=== PATIENT | male | born 1955 | race Caucasian/White ===

== ENCOUNTER → 2020-06-05 17:27 | Outpatient (CLI) | payer MEDICAID, SELFPAY ==
[2020-06-05 18:35] LABS: Chloride 105 mmol/L (98-107)
[2020-06-05 18:36] LABS: Potassium 4.7 mmoL/L (3.5-5.1); Sodium 139 mmol/L (136-145)
[2020-06-05 18:38] LABS: Alanine Aminotransferase 15 U/L (12-78); Albumin Level 4.4 g/dl (3.5-5.0); Albumin/Globulin Ratio 1.5 (1.1-1.8); Alkaline Phosphatase 83 U/L (38-126); Anion Gap 17.7 mEq/L (5-15); Aspartate Amino Transferase 27 U/L (17-59); Bilirubin,Total 0.7 mg/dl (0.2-1.3); Blood Urea Nitrogen 19 mg/dl (9-20); Calcium 9.5 mg/dl (8.4-10.2); Carbon Dioxide 21 mmol/L (22.0-30.0); Estimated Glomerular Filt Rate 114 ml/min (>60); GFR (African American) 138 ML/MIN (>60); Glucose 91 mg/dl (74-100); Total Protein,Serum 7.4 g/dl (6.3-8.2)
== END ==
PROVIDERS: Visit Provider Family Medicine
DX: E87.6 Hypokalemia (principal)
CPT/HCPCS: 80053

== ENCOUNTER → 2021-08-20 12:43 | Outpatient (CLI) | payer MEDICAID, SELFPAY | PROVIDERS: Visit Provider Family Medicine | DX: Z20.822 Contact with and (suspected) exposure to COVID-19 (principal) | CPT/HCPCS: C9803; U0003; U0005 ==

== ENCOUNTER → 2021-11-18 14:54 | Outpatient (CLI) | payer MEDICAID, SELFPAY ==
[2021-11-18 17:08] LABS: Amphetamine/Metha Screen,Urine Negative ng/ml (<1000)
[2021-11-18 17:09] LABS: Barbiturates Screen,Urine Negative ng/ml (<200)
[2021-11-18 17:10] LABS: Benzodiazepines Screen,Urine Negative ng/ml (<200); Cannabinoid Screen,Urine Negative ng/ml (<50)
[2021-11-18 17:11] LABS: Cocaine Screen,Urine Negative ng/ml (<300)
[2021-11-18 17:12] LABS: Methadone Screen,Urine Negative ng/ml (<300); Opiate Screen,Urine Negative ng/ml (<300)
[2021-11-18 17:13] LABS: Phencyclidine Screen,Urine Negative ng/ml (<25)
== END ==
PROVIDERS: Visit Provider Family Medicine
DX: Z79.899 Other long term (current) drug therapy (principal)
CPT/HCPCS: 80305

== ENCOUNTER → 2021-11-30 10:06 | Outpatient (CLI) | payer MEDICARE, MEDICAID, SELFPAY | PROVIDERS: Visit Provider Surgery | DX: Z01.812 Encounter for preprocedural laboratory examination (principal); Z11.52 Encounter for screening for COVID-19; Z13.810 Encounter for screening for upper gastrointestinal disorder | CPT/HCPCS: C9803; U0003; U0005 ==

== ENCOUNTER 2021-12-03 10:55 | Day surgery (SDC) | payer MEDICARE, MEDICAID, SELFPAY ==
[2021-11-29 10:49] VITALS: BMI 28.3
[2021-12-03 11:11] VITALS: BP 137/87; PULSE 64; RESP 18; TEMP 36.5; O2SAT 98
[2021-12-03 11:27] VITALS: O2SAT 97
[2021-12-03 11:40] VITALS: BP 109/71; PULSE 66; RESP 18; TEMP 36.6; O2SAT 94
--- NOTE | 2021-12-03 11:44 | P.PCN_ITS ---
- Procedure: Date: 12/03/21 Patient Date of :: 1955 Procedure Performed:: Esophagogastroduodenoscopy with biopsy Indications:: Atypical chest pain Reflux Performing Provider:: Carlos Eduardo Mauricio MD Referring Provider:: . Sedation:: Monitored anesthesia care Procedure:: After informed consent was obtained the patient was taken to the endoscopy suite . Sedation ensued after the patient was transferred to the left lateral decubitus position. Pulse, blood pressure, and oxygen saturation were monitored throughout the procedure. The endoscope was advanced beyond the duodenal bulb. Retroflexion within the gastric lumen was accomplished. The gastroscope was carefully removed and the patient was transferred to recovery in stable condition. Please see findings and specimens below for detail. Findings:: Gastroesophageal junction at 41 cm Minuscule sliding hiatal hernia Patchy/streaking gastritis Specimens:: Antral biopsy Recommendations:: Follow-up pathology Evaluation with regard to atypical chest pain will be ongoing Barium swallow considered He may benefit from calcium channel blockade Complications:: No immediate Estimated blood obtained (mL): 1
[2021-12-03 11:50] VITALS: BP 110/70; PULSE 64; RESP 18; O2SAT 95
--- NOTE | 2021-12-03 11:52 | P.PN_ITS ---
[facility] Anesthesia Checklist - Patient Identification Patient Identification: Arm Band - Structural Data Admitted From: Home Planned Operative Procedure/s: egd Consent for Planned Operative Procedure(s) Verified: Yes Verified Documents: Surgical Consent, History and Physical - NPO Status Verified Time NPO: 00:00 - Additional verifications Anesthesia Reactions: No - Airway Assessment C-Spine Mobility Assessed: Yes (mp2) TMJ Mobility Assessed: Yes Dentition: Edentulous - Neurological Assessment Level of Consciousness: Awake, Alert - Anesthesia Plan Anesthesia Risk discussed: Yes Anesthesia Plan: Verified ASA Class: III Anesthesia Type: MAC [facility] History I have reviewed the patient's past medical history: Yes Medical History: Reports:: Cancer (left leg), Chronic Obstructive Pulmonary Disease (COPD), Hyperlipidemia, Hypertension, Migraine, Myocardial Infarction Denies:: Diabetes Mellitus Type 1, Diabetes Mellitus Type 2, Internal Pacemaker, MRSA, Seizures *Have you ever received a pneumonia vaccine?: No *Have you received a flu vaccine this season?: Yes Anesthesia experience/problems:: nac Laterality Cases: Left: Total Hip Replacement, Other Other Surgeries: Yes: Cardiac Catheterization, Cardiac Surgery, Coronary Stent, Open Heart Surgery. No: Pacemaker Amputation: Yes Fractures: No - *Social History Last grade of school completed: High school graduate Smoking Status: Current every day smoker Tobacco Type: cigarettes # Packs/Day (cigarettes): 1 Alcohol Intake: never Substance Use Type: denies use *Occupational Status:: disabled Housing: house Household Members: spouse *Travel in the last 8 weeks: None Family Hx:: Adopted
[2021-12-03 12:00] VITALS: BP 114/83; PULSE 62; RESP 18; O2SAT 96
[2021-12-03 12:10] VITALS: BP 132/76; PULSE 57; RESP 18; O2SAT 97
== END 2021-12-03 12:15 | disposition home or self-care (01) ==
LOC: OUTP 10:57
PROVIDERS: PCP Family Medicine; Visit Provider Surgery
PROC: 0DJ08ZZ Inspection of Upper Intestinal Tract, Via Natural or Artificial Opening Endoscopic (ICD-10-PCS; CPT 43235; principal; 2021-12-03 11:30)
DX: K44.9 Diaphragmatic hernia without obstruction or gangrene (principal); K29.60 Other gastritis without bleeding; J44.9 Chronic obstructive pulmonary disease, unspecified; E78.5 Hyperlipidemia, unspecified; I10 Essential (primary) hypertension; I25.2 Old myocardial infarction; G43.909 Migraine, unspecified, not intractable, without status migrainosus; Z85.9 Personal history of malignant neoplasm, unspecified; Z72.0 Tobacco use; Z88.0 Allergy status to penicillin; Z79.899 Other long term (current) drug therapy
CPT/HCPCS: 43239

== ENCOUNTER → 2021-12-06 16:40 | Outpatient (CLI) | payer MEDICARE, MEDICAID, SELFPAY ==
[2021-12-06 18:54] LABS: Amphetamine/Metha Screen,Urine Negative ng/ml (<1000)
[2021-12-06 18:55] LABS: Barbiturates Screen,Urine Negative ng/ml (<200)
[2021-12-06 18:56] LABS: Cannabinoid Screen,Urine Negative ng/ml (<50); Cocaine Screen,Urine Negative ng/ml (<300)
[2021-12-06 18:58] LABS: Opiate Screen,Urine Negative ng/ml (<300); Phencyclidine Screen,Urine Negative ng/ml (<25)
[2021-12-06 19:15] LABS: Methadone Screen,Urine Negative ng/ml (<300)
[2021-12-06 19:18] LABS: Benzodiazepines Screen,Urine Negative ng/ml (<200)
== END ==
PROVIDERS: Visit Provider Family Medicine
DX: Z79.899 Other long term (current) drug therapy (principal)
CPT/HCPCS: 80305

== ENCOUNTER → 2022-01-14 16:00 | Outpatient (CLI) | payer MEDICARE, MEDICAID, SELFPAY ==
[2022-01-14 20:13] LABS: Amphetamine/Metha Screen,Urine Negative ng/ml (<1000)
[2022-01-14 20:14] LABS: Barbiturates Screen,Urine Negative ng/ml (<200)
[2022-01-14 20:16] LABS: Benzodiazepines Screen,Urine Negative ng/ml (<200); Cannabinoid Screen,Urine Negative ng/ml (<50)
[2022-01-14 20:17] LABS: Cocaine Screen,Urine Negative ng/ml (<300); Methadone Screen,Urine Negative ng/ml (<300)
[2022-01-14 20:18] LABS: Opiate Screen,Urine Negative ng/ml (<300)
[2022-01-14 20:19] LABS: Phencyclidine Screen,Urine Negative ng/ml (<25)
== END ==
PROVIDERS: Visit Provider Family Medicine
DX: Z79.899 Other long term (current) drug therapy (principal)
CPT/HCPCS: 80305

== ENCOUNTER → 2022-01-25 12:06 | Outpatient (CLI) | payer MEDICARE, MEDICAID, SELFPAY ==
[2022-01-25 12:52] LABS: Basophils # 0.1 K/mm3 (0-0.2); Basophils % 0.8 % (0.1-2.0); Eosinophils # 0.2 K/mm3 (0.0-0.4); Eosinophils % 2.6 % (0.1-12.0); Hematocrit 45.2 % (42.0-52.0); Hemoglobin 15.1 g/dL (14.1-18.0); Lymphocytes # 2.2 K/mm3 (0.7-4.5); Lymphocytes % 27.4 % (10-50); Mean Corpuscular HGB Conc 33.5 g/dL (31.8-35.4); Mean Corpuscular Hemoglobin 30.9 pg (27.0-31.2); Mean Corpuscular Volume 92.2 fl (80-94); Mean Platelet Volume 6.8 fl (7.4-10.4); Monocytes # 0.6 K/mm3 (0.1-1.0); Monocytes % 7.1 % (1.7-9.3); Neutrophils % 62.1 % (37.0-80.0); Platelet Count 272 K/mm3 (142-424); Red Blood Count 4.91 M/mm3 (4.60-6.20); Red Cell Distribution Width 14.3 % (11.5-17.5); White Blood Count 8.1 K/mm3 (4.8-10.8)
[2022-01-25 13:26] LABS: Anion Gap 10.5 mEq/L (5-15); Blood Urea Nitrogen 22 mg/dl (9-20); Calcium 8.8 mg/dl (8.4-10.2); Carbon Dioxide 26 mmol/L (22.0-30.0); Chloride 105 mmol/L (98-107); Estimated Glomerular Filt Rate 97 ml/min (>60); GFR (African American) 117 ML/MIN (>60); Glucose 103 mg/dl (74-100); Potassium 3.5 mmoL/L (3.5-5.1); Sodium 138 mmol/L (136-145)
== END ==
PROVIDERS: PCP Family Medicine; Referring Provider Internal Medicine; Visit Provider Nurse Practitioner Family
DX: I10 Essential (primary) hypertension (principal); S78.112A Complete traumatic amputation at level between left hip and knee, initial encounter; Z85.830 Personal history of malignant neoplasm of bone; Z95.1 Presence of aortocoronary bypass graft; Z01.812 Encounter for preprocedural laboratory examination; Z11.52 Encounter for screening for COVID-19; I20.8 Other forms of angina pectoris
CPT/HCPCS: 36415; 80048; 85025; C9803; U0003; U0005

== ENCOUNTER 2022-01-27 09:06 | Day surgery (SDC) | payer MEDICARE, MEDICAID, SELFPAY ==
[2022-01-27] VITALS (13 sets, daily range): BP systolic 125–174; BP diastolic 77–104; PULSE 62–79; RESP 18–20; TEMP 36.9; O2SAT 92–97; BMI 27.3
--- NOTE | 2022-01-27 07:05 | IR_ITS ---
APPROVED REPORT Patient Location: Outpatient PROCEDURES Left heart catheterization Left ventriculogram Selective coronary angiogram Left internal mammary angiography Selective engagement of the saphenous vein graft to circumflex artery Bilateral selective renal angiography Drug-eluting stent deployment to a large second diagonal artery Drug-eluting stent deployment to the mid and distal LAD INDICATION Coronary artery disease, History of coronary bypass surgery, Accelerated angina pectoris, Malignant hypertension, Suspect renovascular hypertension with renal artery stenosis Informed consent was obtained prior to the procedure. COMPLICATIONS None Estimated Blood Loss: Less than 10 mls TECHNIQUE One percent lidocaine used to anesthetize the right groin. The right femoral artery was accessed via the Seldinger technique and a 5 Estonian sheath was placed in the right femoral artery. A JL 4, JR4 catheter were used to perform left heart catheterization, left ventriculogram selective coronary angiography as well as selective engagement of the 1 vein graft and the left internal mammary artery. The JR4 catheter was used to perform selective angiography of each renal artery. At the end the diagnostic angiogram therapeutic heparin was administered and the 5 Estonian sheath was exchanged for a 6 Estonian sheath. An EBU 3.75 guide catheter was placed in the left main artery followed by a Choice PT extra-support wire placed in the second large diagonal artery. A 2.5 x 12 mm resolute [place] stent was deployed in the LAD extending into the diagonal artery and deployed at 20 dinora. The wire was pulled back and placed down into the LAD where 2 mm x 12 mm noncompliant balloon was deployed at 20 dinora opening the struts into the LAD. 2.5 x 38 mm resolute [place] stent was then placed in the LAD proximal to the stented diagonal artery and distally into the LAD however the stent landed proximal to the small anastomosis of the left internal mammary artery the stent was deployed at 20 dinora reducing the stenosis. At the end the procedure excellent angiographic results were obtained. After achieving EDIN-3 flow before and after the procedure the apparatus was moved the groin is reprepped closure change sheath was removed and hemostasis was achieved and TR banding patient transferred the postop holding in stable condition ANGIOGRAPHIC RESULTS The left main artery Has an ostial 30% stenosis followed by proximal stent which extends into the proximal LAD. The stent is widely patent with minimal in-stent restenosis. The left anterior descending artery Has a stent originating off the left main artery which is widely patent in the proximal and mid segment. Just distal to the stent is a large second diagonal artery which has an ostial greater than 90% concentric in-stent restenotic lesion. Distal to the second diagonal artery there is a 90 followed by an additional 90% eccentric stenosis just proximal to the anastomosis of a small left internal mammary artery. There is some competitive flow from the LINDSEY graft. The circumflex artery Is a nondominant vessel and has proximal 30 to 40% stenosis. The terminal obtuse marginal artery has a proximal 90% stenosis in a small. There is some scant competitive flow from the vein graft The right coronary artery Is a large dominant vessel and has stents in the proximal mid and distal segment in a contiguous manner. There is diffuse 20 and 30% in-stent restenosis. A large posterior lateral branch is widely patent while a large posterior descending artery has a proximal 70% stenosis The CAMERON ventriculogram reveals Normal 65% The left ventricular end-diastolic pressure 10 mmHg Left internal mammary artery i
[2022-01-27 11:38] LABS: CATHL Activated Clotting Time > 400 SEC (74-125)
--- NOTE | 2022-01-27 12:19 | SUR.PHASEII ---
Notified Dr peña of patient chest pain after giving nitro spray and morphine, stated to give more nitro spray
--- NOTE | 2022-01-27 14:22 | HMH.PHACLD ---
Arash Montaño has received discharge medication counseling on the following medications: METOPROLOL ASPIRIN PLAVIX LIPITOR LISINOPRIL PATIENT IS ALREADY TAKING ALL NECESSARY MEDICATIONS WITH THE EXCEPTION OF ASPIRIN. PATIENT STATES HE HAS SOME AT HOME. PATIENT VERBALIZED UNDERSTANDING AND HAD NO QUESTIONS AT THIS TIME. -BAYRON REECE, PHARMD
== END 2022-01-27 15:24 | disposition home or self-care (01) ==
LOC: CATHLAB 09:08
PROVIDERS: PCP Family Medicine; Visit Provider Internal Medicine
DX: I10 Essential (primary) hypertension (principal); Z95.1 Presence of aortocoronary bypass graft; I25.110 Atherosclerotic heart disease of native coronary artery with unstable angina pectoris; I70.1 Atherosclerosis of renal artery; Z79.01 Long term (current) use of anticoagulants; Z79.899 Other long term (current) drug therapy; I15.0 Renovascular hypertension; I45.2 Bifascicular block; F17.210 Nicotine dependence, cigarettes, uncomplicated
CPT/HCPCS: 36252; 85347; 92928; 92929; 93459; 99152; 99153; C1725; C1760; C1769; C1876; C1894; C9600; C9601; J1644; Q9967

== ENCOUNTER 2022-02-03 09:17 | Day surgery (SDC) | payer MEDICARE, MEDICAID, SELFPAY ==
[2022-02-03] VITALS (20 sets, daily range): BP systolic 125–163; BP diastolic 76–113; PULSE 66–91; RESP 14–18; TEMP 36.4–36.7; O2SAT 92–99; BMI 26.7; BMI 27.3
--- NOTE | 2022-02-03 09:13 | IR_ITS ---
APPROVED REPORT Patient Location: Outpatient Food Service Manager: DULCE Amaro RT (R) PROCEDURES Left heart catheterization Left ventriculogram Selective coronary angiogram Selective engagement of the saphenous vein graft circumflex artery Drug-eluting stent deployment to the proximal mid and distal dominant right coronary artery's posterior descending artery INDICATION Recalcitrant angina pectoris, Coronary artery disease, History of coronary bypass surgery SCAI INDICATION Clinical history: 66-year-old gentleman with known ischemic heart disease who recently underwent stenting of the large diagonal artery and assiniboine and g[place] ventre tribes LAD to few weeks ago. Since his discharge home he has been in the emergency department no less than 3 times with recurrent recalcitrant angina pectoris. Patient is a long-term smoker and continues to excessively smoke. Patient had no disease in a posterior descending artery however we tried our best to treat this medically and we maximized antianginal medications. Despite all efforts patient continued to have recalcitrant angina pectoris. Because of this it was decided to revascularize the posterior descending artery which coincidentally did have EDIN II flow down the vessel. The plan was to bring patient into the Plant Maintenance Technician and stent the posterior descending artery. A radial cath was performed due to recent evaluation of the left internal mammary artery which did demonstrate patency with antegrade flow to the distal vessel. It was decided not to evaluate the LINDSEY graft today. Informed consent was obtained prior to the procedure. COMPLICATIONS NONE Estimated Blood Loss: LESS THAN 10 ML TECHNIQUE One percent lidocaine used to anesthetize the right groin. The right femoral artery was accessed via the Seldinger technique and a 5 Macedonian sheath was placed in the right femoral artery. A JL 4, JR4 catheter were used to perform left heart catheterization, left ventriculogram selective coronary angiography as well as selective engagement of the 2 vein grafts and the left internal mammary artery. At the end of the procedure the patient was transferred to the postop holding area in stable condition for sheath removal. ANGIOGRAPHIC RESULTS The left main artery Has an ostial 10 to 20% stenosis followed by a stent which extends throughout its entire course into the LAD. The stent is widely patent The left anterior descending artery Has a stent which originates off the left main artery and is contiguous throughout the proximal mid and distal segment. The stent is widely patent free of in-stent restenosis. Distal to the terminal aspect of the stent is competitive flow from the left internal mammary artery. A large stent placed in the terminal largest diagonal artery is widely patent and provides EDIN III inline flow to this diagonal artery The circumflex artery Is nondominant and provides flow to the first and second small obtuse marginal artery. The vessel has proximal 30% stenosis The right coronary artery Is a large dominant vessel and has calcification throughout the proximal mid segment accompanied by stents which are widely patent. Large posterior descending artery has proximal long 70% stenosis focal 80% stenosis followed by an additional focal 80% stenosis. A large posterior lateral branch is widely patent The CAMERON ventriculogram reveals Hyperdynamic at 75% The left ventricular end-diastolic pressure 20 mmHg Saphenous vein graft to the circumflex artery's terminal obtuse marginal artery is widely patent. The graft is large atheromatous and has sluggish flow into a small to moderate sized terminal obtuse marginal artery LINDSEY is known to be patent to the terminal LAD IMPRESS
[2022-02-03 09:24] LABS: Coronavirus 19, PCR Not Detected (NotDetected); Influenza A, PCR Not Detected (NotDetected); Influenza B, PCR Not Detected (NotDetected)
[2022-02-03 14:42] LABS: CATHL Activated Clotting Time > 400 SEC (74-125)
--- NOTE | 2022-02-03 17:40 | PC.NURSE ---
1735-Rt Radial Band removed at this time.
--- NOTE | 2022-02-03 18:38 | PC.NURSE ---
RT Radial Band removed at this time.
--- NOTE | 2022-02-03 18:46 | PC.NURSE ---
1445-3mls air removed from radial band 1505-3mls air removed from radial band 1520-2mls air removed from radial band 1538-4mls air removed from radial band 1550-2mls air removed from radial band 1625-2mls air removed from radial band
--- NOTE | 2022-02-03 18:53 | PC.NURSE ---
1657- 2mls air removed from rt radial band 1724-2mls air removed from rt radial band.
--- NOTE | 2022-02-03 19:36 | PC.NURSE ---
Report given to QI Santana.
[2022-02-04] VITALS: BP 153/92; PULSE 75; PULSE 92; RESP 18; TEMP 36.7; O2SAT 95
[2022-02-04 01:04] VITALS: RESP 18
[2022-02-04 04:00] VITALS: BP 154/86; PULSE 70; PULSE 81; RESP 20; TEMP 37.1; O2SAT 96; BMI 27.5
--- NOTE | 2022-02-04 04:22 | PC.NURSE ---
no acute changes from previous assessment, patient has rested on and off throughout shift, will continue to monitor
--- NOTE | 2022-02-04 04:43 | PC.NURSE ---
Addendum entered by Giselle Bolaños RN 02/04/22 04:45: SAHIL [employer] CLERK Original Note: ALL CHARTING AND CARE BY SAHIL RN, DONE UNDER MY DIRECT SUPERVISION.
[2022-02-04 05:38] VITALS: RESP 18
[2022-02-04 07:28] LABS: Basophils # 0.1 K/mm3 (0-0.2); Basophils % 0.9 % (0.1-2.0); Eosinophils # 0.2 K/mm3 (0.0-0.4); Eosinophils % 2.7 % (0.1-12.0); Hematocrit 40.2 % (42.0-52.0); Hemoglobin 12.7 g/dL (14.1-18.0); Lymphocytes # 1.4 K/mm3 (0.7-4.5); Mean Corpuscular HGB Conc 31.5 g/dL (31.8-35.4); Mean Corpuscular Volume 98.4 fl (80-94); Mean Platelet Volume 7.6 fl (7.4-10.4); Monocytes # 0.5 K/mm3 (0.1-1.0); Monocytes % 6.2 % (1.7-9.3); Neutrophils # 5.1 K/mm3 (1.8-7.8); Neutrophils % 71.1 % (37.0-80.0); Platelet Count 203 K/mm3 (142-424); Red Blood Count 4.09 M/mm3 (4.60-6.20); Red Cell Distribution Width 15.2 % (11.5-17.5); White Blood Count 7.2 K/mm3 (4.8-10.8)
[2022-02-04 07:43] LABS: Anion Gap 10.5 mEq/L (5-15); Blood Urea Nitrogen 9 mg/dl (9-20); Calcium 7.8 mg/dl (8.4-10.2); Carbon Dioxide 25 mmol/L (22.0-30.0); Chloride 103 mmol/L (98-107); Creatinine Clearance Estimated 98 mL/min (50-200); Estimated Glomerular Filt Rate 135 ml/min (>60); GFR (African American) 164 ML/MIN (>60); Glucose 149 mg/dl (74-100); Potassium 3.5 mmoL/L (3.5-5.1); Sodium 135 mmol/L (136-145)
[2022-02-04 08:00] VITALS: BP 161/65; PULSE 80; RESP 21; TEMP 36.7; O2SAT 96
--- NOTE | 2022-02-04 10:31 | PC.NURSE ---
verified with cathlab that patient could leave at 1230 24hours after anesthesia
--- NOTE | 2022-02-04 11:50 | HMH.PHACLD ---
Arash Montaño has received discharge medication counseling on the following medications: PATIENT IS CURRENTLY TAKING PLAVIX 75 MG DAILY, ATORVASTAIN 40 MG HS, LISINOPRIL 20 MG DAILY, AND METOPROLOL SUCCINATE 100 MG DAILY. MD STARTED ASPIRIN 81 MG DAILY AT LAST VISIT ON 01/27/22. PATIENT INDICATED HE HAS ALREADY BEEN TAKING THE ASPIRIN.
--- NOTE | 2022-02-04 12:39 | PC.NURSE ---
PT HAS BEEN RESTING IN BED T/O THE MORNING. HAS HAD NO C/O. D/C INSTRUCTIONS REVIEWED, PT VERBALIZED UNDERSTANDING. IV REMOVED. PT LEFT FLOOR IN WHEELCHAIR ACCOMPANIED BY STAFF AT 12:30.
== END 2022-02-04 12:30 | disposition home or self-care (01) ==
LOC: CATHLAB 09:21 → 2ND 14:03
PROVIDERS: Nurse Practitioner Family; PCP Family Medicine; Visit Provider Internal Medicine
DX: I10 Essential (primary) hypertension; I21.4 Non-ST elevation (NSTEMI) myocardial infarction; I45.2 Bifascicular block; R06.00 Dyspnea, unspecified; R94.31 Abnormal electrocardiogram [ECG] [EKG]; Z95.1 Presence of aortocoronary bypass graft; F17.210 Nicotine dependence, cigarettes, uncomplicated; I25.118 Atherosclerotic heart disease of native coronary artery with other forms of angina pectoris; Z20.822 Contact with and (suspected) exposure to COVID-19
CPT/HCPCS: 80048; 85025; 85347; 92928; 93459; 99152; 99153; C1725; C1760; C1769; C1876; C9600; C9803; J1644; Q9967; U0003; U0005

== ENCOUNTER → 2022-03-28 16:33 | Outpatient (CLI) | payer MEDICARE, MEDICAID, SELFPAY ==
[2022-03-28 17:17] LABS: Amphetamine/Metha Screen,Urine Negative ng/ml (<1000)
[2022-03-28 17:18] LABS: Barbiturates Screen,Urine Negative ng/ml (<200)
[2022-03-28 17:19] LABS: Benzodiazepines Screen,Urine Negative ng/ml (<200); Cannabinoid Screen,Urine Negative ng/ml (<50)
[2022-03-28 17:20] LABS: Cocaine Screen,Urine Negative ng/ml (<300)
[2022-03-28 17:21] LABS: Methadone Screen,Urine Negative ng/ml (<300); Opiate Screen,Urine Negative ng/ml (<300)
[2022-03-28 17:22] LABS: Phencyclidine Screen,Urine Negative ng/ml (<25)
== END ==
PROVIDERS: Visit Provider Family Medicine
DX: Z79.899 Other long term (current) drug therapy (principal)
CPT/HCPCS: 80305

== ENCOUNTER → 2023-07-30 23:43 | Outpatient (CLI) | payer MEDICARE, MEDICAID, SELFPAY ==
[2023-07-30 19:24] LABS: Alanine Aminotransferase 36 U/L (12-78); Albumin Level 4.4 g/dl (3.5-5.0); Albumin/Globulin Ratio 1.3 (1.1-1.8); Alkaline Phosphatase 67 U/L (38-126); Anion Gap 15.1 mEq/L (5-15); Aspartate Amino Transferase 51 U/L (17-59); Bilirubin,Total 0.9 mg/dl (0.2-1.3); Blood Urea Nitrogen 19 mg/dl (9-20); Calcium 9.3 mg/dl (8.4-10.2); Carbon Dioxide 22 mmol/L (22.0-30.0); Chloride 105 mmol/L (98-107); Chol/HDL Ratio 6.8 (1-3.5); Cholesterol 150 mg/dl (140-200); Estimated Glomerular Filt Rate 97 ml/min (>60); GFR (African American) 117 ML/MIN (>60); Globulin 3.4 g/dL (1.3-3.2); Glucose 97 mg/dl (74-100); HDL Cholesterol 22 mg/dl (40-60); Potassium 4.1 mmoL/L (3.5-5.1); Sodium 138 mmol/L (136-145); Total Protein,Serum 7.8 g/dl (6.3-8.2); Triglycerides 333 mg/dl (30-150); VLDL Cholesterol 67 mg/dL (0-40)
[2023-07-30 21:23] LABS: Direct LDL Cholesterol 67.42 mg/dL (100-129)
[2023-07-30 21:50] LABS: Prostate Specific Ag Screen 0.9 ng/ml (0.0-4.0)
== END ==
PROVIDERS: PCP Family Medicine; Visit Provider Family Medicine
DX: G43.909 Migraine, unspecified, not intractable, without status migrainosus (principal); I15.0 Renovascular hypertension; Z12.5 Encounter for screening for malignant neoplasm of prostate
CPT/HCPCS: 80053; 80061; G0103

== ENCOUNTER → 2023-08-21 14:11 | Outpatient (CLI) | payer MEDICARE, MEDICAID, SELFPAY ==
--- NOTE | 2023-08-21 14:11 | CT_ITS ---
FINAL REPORT CLINICAL HISTORY: lung cancer screening 2 ppd x 50 yrs FINDINGS: Axial images were obtained from the lung apex to the mid abdomen by computed tomography. Low-dose protocol was utilized. CTDl vol(mGy): 2.90 DLP (mGy-cm): 97.95 FINDINGS: There is streak artifact from multiple median sternotomy wires. There is no axillary adenopathy. There is no hilar or mediastinal adenopathy. The heart size is normal. There is dense coronary artery calcification. There is no pericardial or pleural effusion. Limited images of the upper abdomen are unremarkable. Lung window images demonstrate no suspicious infiltrate or nodule. There is mild chronic fibrosis bilaterally. A calcified granuloma seen in the left lung base. IMPRESSION: No suspicious pulmonary abnormality. Lung RADS category 1S. Recommend 12 month follow-up low-dose chest CT. Modifier S: Coronary artery calcifications. Reviewed, Interpreted and Dictated by Rajesh Ramos MD Transcribed by Marcela Veloz Authenticated and . [facility]
== END ==
PROVIDERS: PCP Family Medicine; Visit Provider Family Medicine
DX: Z12.2 Encounter for screening for malignant neoplasm of respiratory organs (principal); Z87.891 Personal history of nicotine dependence
CPT/HCPCS: 71271

== ENCOUNTER 2023-12-11 18:46 | Outpatient (CLI) | payer MEDICARE, MEDICAID, SELFPAY ==
[2023-12-11 19:57] LABS: Amphetamine/Metha Screen,Urine Negative ng/ml (<1000)
[2023-12-11 19:58] LABS: Barbiturates Screen,Urine Negative ng/ml (<200)
[2023-12-11 19:59] LABS: Benzodiazepines Screen,Urine Negative ng/ml (<200); Cannabinoid Screen,Urine Negative ng/ml (<50)
[2023-12-11 20:00] LABS: Cocaine Screen,Urine Negative ng/ml (<300); Methadone Screen,Urine Negative ng/ml (<300)
[2023-12-11 20:01] LABS: Opiate Screen,Urine Negative ng/ml (<300)
[2023-12-11 20:02] LABS: Phencyclidine Screen,Urine Negative ng/ml (<25)
== END 2023-12-11 23:59 ==
LOC: LAB.DROPOF 18:47
PROVIDERS: Visit Provider Family Medicine
DX: Z79.899 Other long term (current) drug therapy (principal)
CPT/HCPCS: 80307

== ENCOUNTER 2025-08-25 11:00 | Outpatient (CLI) | payer MEDICAID, SELFPAY ==
[2025-08-25 16:44] LABS: Alanine Aminotransferase 44 U/L (12-78); Albumin Level 4.2 g/dl (3.5-5.0); Albumin/Globulin Ratio 1.6 (1.1-1.8); Alkaline Phosphatase 65 U/L (38-126); Anion Gap 13.6 mEq/L (5-15); Aspartate Amino Transferase 54 U/L (17-59); Bilirubin,Total 1.1 mg/dl (0.2-1.3); Blood Urea Nitrogen 17 mg/dl (9-20); Calcium 9.3 mg/dl (8.4-10.2); Carbon Dioxide 26 mmol/L (22.0-30.0); Chloride 103 mmol/L (98-107); Creatinine,Serum 0.70 mg/dl (0.66-1.25); Estimated Glomerular Filt Rate 112 ml/min (>60); GFR (African American) 136 ML/MIN (>60); Globulin 2.7 g/dL (1.3-3.2); Glucose 106 mg/dl (74-100); Potassium 3.6 mmoL/L (3.5-5.1); Sodium 139 mmol/L (136-145); Total Protein,Serum 6.9 g/dl (6.3-8.2)
[2025-08-25 17:03] LABS: Hemoglobin A1C 5.8 % (4.0-6.0)
[2025-08-25 18:11] LABS: Hepatitis C Ab Qual. W/ RFX REACTIVE (Negative)
--- OUTSIDE RECORDS SUMMARY | 2025-08-28 10:48 | XMS_ITS | Clinical Summary ---
Author Organization [facility] Address [address] [place] [address] Phone Care Team Providers Care Fractionating Still Operator Name Role Phone Timo Walters MD Primary Care Provider [phone] Arpita Newton MD Unavailable Allergies Active Allergy Reactions Criticality Noted Date Comments Penicillins Hives High 01/13/2022 Medications rivaroxaban (XARELTO) 10 mg Oral Tablet Take 2.5 mg by mouth 2 times daily (with meals). Active clopidogreL (PLAVIX) 75 mg Oral Tablet Take 75 mg by mouth daily. Active metoprolol succinate (TOPROL-XL) 50 mg Oral Tablet Sustained Release 24 hr Take 50 mg by mouth daily. Active atorvastatin (LIPITOR) 40 mg Oral Tablet Take 40 mg by mouth daily. Active hydroCHLOROthia zide (MICROZIDE) 12.5 mg Oral Capsule Take 12.5 mg by mouth daily. Active lisinopriL (PRINIVIL;ZESTR IL) 20 mg Oral Tablet tablet Take 20 mg by mouth daily. Active amLODIPine (NORVASC) 5 mg Oral Tablet Take 1 Tablet by mouth daily. 30 Tablet 11 01/13/2022 Active buPROPion (WELLBUTRIN SR) 150 mg Oral tablet sustained-relea se 12 hr Take 150 mg by mouth daily. Active buPROPion (WELLBUTRIN SR) 150 mg Oral tablet sustained-relea se 12 hr Take 150 mg by mouth nightly. Active nalOXone (NARCAN) 4 mg/actuation Nasl Lowry, Non-Aerosol 0.1 mL by Nasal route as needed for Opioid Reversal. Lowry the contents of one device (0.1mL) into one nostril upon signs of opioid overdose. Call 911. May repeat dose in other nostril if no response within 2-3 minutes. 1 Each 05/15/2025 Active Active Problems Problem Noted Date Diagnosed Date Chest pain, unspecified type 05/14/2025 Assessment & Plan (05/15/2025 4:24 PM EDT): Troponins are rassuring and nothing acute on EKG. Appreciate input from Cardio. Stress done this am and shows no reversible ischemia. RUQ US without acute findings as well. Treat pain symptomatically with Percocet as outpatient. Patient gets frequent small prescriptions for opiates based on his Ankur report. D/w Cardio today Assessment & Plan (05/14/2025 4:36 PM EDT): Troponins are rassuring and nothing clearly acute on EKG but with extensive Hx martin ask Cardio to see to help direct managemetn. Continue asa, NTG, prn morphine for now. Zofran prn. OK to eat tonight but NPO after midnight. Primary hypertension 05/14/2025 Assessment & Plan (05/15/2025 4:24 PM EDT): Gen controlled on home meds Assessment & Plan (05/14/2025 4:36 PM EDT): Follow on home meds Bipolar disease, chronic 05/14/2025 Assessment & Plan (05/15/2025 1:25 PM EDT): Continue Wellbutrin Assessment & Plan (05/14/2025 4:36 PM EDT): Continue Wellbutrin Coronary artery disease invo lving pechanga coronary artery of pechanga heart without angina pectoris 05/14/2025 Assessment & Plan (05/15/2025 4:24 PM EDT): Continue med mgt. Last cath report obtained from [place] and reviewed Assessment & Plan (05/14/2025 4:36 PM EDT): Try to records from [place]. Last cath in Oct per pt. 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 05/14/2025 Assessment & Plan (05/15/2025 1:25 PM EDT): Continue AC Assessment & Plan (05/14/2025 4:36 PM EDT): Continue AC Medical History Medical History Date Comments H/O heart artery stent 12 Status post double vessel coronary artery bypass Hypertension High cholesterol Social History Tobacco Use Types Packs/Day Years Used Date Smoking Tobacco: Every Day Cigarettes 1 54.7 Started: 12/1970 Smokeless Tobacco: Never Tobacco Cessation:Ready to Q uit: No; Counseling Given: Yes Alcohol Use Standard Drinks/Week Comments Never 0 (1 standard drink = 0.6 oz pur e alcohol) [facility] Utilities Answer Date Recorded In the past 12 months has e electric, gas, oil, or water company threatened to shut off services in your home? No 05/14/2025 Overall Financial Resource Strain (CARDIA) Answe r Date Recorded How hard is it for you to pa y for the very basics like food, housing, medical care, and heating? Not hard at all 05/14/2025 PHQ-2 Answer Date Recorded PHQ-2 Total Score 0 05/14/2025 [place] [facility] Occup[facility] ional [facility] - Occupational Stress Questionnaire Answer Date Recorded Do you feel stress - tense, restless, nervous, or anxious, or unable to sleep at night because your mind is troubled all the time - these days? Not at all 05/14/2025 Exercise Vital Sign Answer Date Recorde d On average, how many days pe r week do you engage in moderate to strenuous exercise (like a brisk walk)? 0 days 05/14/2025 On average, how many minutes do you engage in exercise at this level? 0 min 05/14/2025 Hunger Vital Sign Answer Date Recorded Within the past 12 months, y ou worried that your food would run out before you got the money to buy more. Never true 05/14/20 25 Within the past 12 months, t he food you bought just didn't last and you didn't have money to get more. Never true 05/14/2025 [facility] IP Transportation Answer D ate Recorded In the past 12 months, has l ack of reliable transportation kept you from medical appointments, meetings, work or from getting things needed for daily living? No 05/14/2025 Sex and Gender Information Value Date Recorded Sex Assigned at Not on file Legal Sex Male 8:43 AM EST Gender Identity Not on file Sexual Orientation Not on file Last Filed Vital Signs Vital Sign Reading Time Taken Comments Blood Pressure 155/85 05/15/2025 12:03 PM EDT Pulse 72 05/15/2025 1:21 PM EDT Temperature 36.8 C (98.2 F) 05/15/2025 12:03 PM EDT Respiratory Rate 16 05/15/2025 12:03 PM EDT Oxygen Saturation 100% 05/15/2025 12:03 PM EDT Inhaled Oxygen Concentration - - Weight 98.7 kg (217 lb 9.5 oz) 05/14/2025 3:40 P M EDT Height 185.4 cm (6' 1 ) 05/14/2025 3:40 PM EDT Body Mass Index 28.71 05/14/2025 3:40 PM EDT Plan of Treatment Health Maintenance Due Date Last Done Comments Wellness Exam Medicare 1958 Hepatitis C Screening 1974 DTaP/TDaP/Td (1 - Tdap) 1975 Cologuard 2001 Colon Cancer Screening 2001 Colonoscopy 2001 FIT 2001 Sigmoidoscopy 2001 Virtual Colonography 2001 Low Dose Lung Cancer Screening 2006 Zoster (1 of 2) 2006 AAA Screening 2021 COVID-19 Vaccine ( season) 2025 01/15/2022, 02/28/2021, 01/31/2021 Influenza Vaccine (#1) 2025 , 09/24/2023, 09/15/2022, Additional history exists Pneumococcal Vaccine 50+ Completed 06/03/2023 Hepatitis B Vaccine Aged Out No longe r eligible based on patient's age to complete this topic Meningococcal B Vaccine Aged Out No l onger eligible based on patient's age to complete this topic Insurance MEDICARE PART B [address] [facility] [place] [address] [facility] MEDICARE PART B [id number] [place] [address] [facility] MDR Advance Directives For more information, please contact: [phone] * Full Code (Latest Code Status on File) Date Activated Date Inactivated Comments 05/15/2025 11:56 AM 05/15/2025 6:41 PM Care Teams Fractionating Still Operator Relationship Specialty Start Date End Date Timo Walters MD PCP - General Family Medicine 01/13/22 Arpita Newton MD [address] [place] [address] [place] [id number] Internal Medicine-Interventional Cardiology 01/13/22
--- OUTSIDE RECORDS SUMMARY | 2025-08-28 10:48 | XMS_ITS | Encounter Summary ---
Author Organization [place] [address] Care Team Providers Care Conditioner Tender Name Role Phone Timo Walters MD Primary Care Provider [phone] Arpita Newton MD Unavailable Encounter Details Date Type Department Care Team (Late st Contact Info) Description 05/16/2025 Results Follow-Up [facility] [address] [place] [id number] Leelee Strickland, YOGA COORDINATOR [address] [place] [address] LIPID SCREEN Social History Tobacco Use Types Packs/Day Years Used Date Smoking Tobacco: Every Day Cigarettes 1 54.7 Started: 12/1970 Smokeless Tobacco: Never Alcohol Use Standard Drinks/Week Comments Never 0 (1 standard drink = 0.6 oz pur e alcohol) [facility] Utilities Answer Date Recorded In the past 12 months has [employer]is[employer], gas, oil, or water [employer] threatened to shut off services in your home? No 05/14/2025 Overall Financial Resource Strain (CARDIA) Answe r Date Recorded How hard is it for you to pa y for the very basics like food, housing, medical care, and heating? Not hard at all 05/14/2025 PHQ-2 Answer Date Recorded PHQ-2 Total Score 0 05/14/2025 [facility] [place] of Occupat ional Health - Occupational Stress [...] money to get more. Never true 05/14/2025 [facility] IP Transportation Answer D ate Recorded [...] on file Sexual Orientation Not on file documented as of this encounter Plan of Treatment Not on file documented as of this encounter Visit Diagnoses Not on filedocumented in this encounter Care Teams Conditioner Tender Relationship Specialty Start Date End Date Timo Walters MD PCP - General Family Medicine 01/13/22 Arpita Newton MD [address] [place] [address] [place] [address] Internal Medicine-Interventional Cardiology 01/13/22 documented as of this encounter
--- OUTSIDE RECORDS SUMMARY | 2025-08-28 10:48 | XMS_ITS | Encounter Summary ---
Author Organization [facility] Address [address] [place] [id number] Care Team Providers Care Director Long Term Care Name Role Phone Timo Walters MD Primary Care Provider [phone] Reason for Visit * Reason Onset Date Comments Scheduling 01/15/2023 returning call Encounter Details Date Type Department Care Team (Late st Contact Info) Description 01/15/2023 Telephone [facility] Physicians - Heart & Vascular, [place] [address] [id number] Patient Scheduling (returning call) Social History Tobacco Use Types Packs/Day Years Used Date Smoking Tobacco: Never Assessed Sex and Gender Information Value Date Recorded Sex Assigned at Not on file Legal Sex Male 9:06 AM EDT Gender Identity Not on file Sexual Orientation Not on file documented as of this encounter Miscellaneous Notes * Telephone Encounter - Irineo Hawk - 01/15/2023 9:37 AM EST LVM returning call from patient documented in this encounter Plan of Treatment Not on file documented as of this encounter Visit Diagnoses Not on filedocumented in this encounter Care Teams Director Long Term Care Relationship Specialty Start Date End Date Timo Walters MD [address] [place] [address] [id number] PCP - General Family Medicine 04/29/22 documented as of this encounter
--- OUTSIDE RECORDS SUMMARY | 2025-08-28 10:48 | XMS_ITS | Clinical Summary ---
Author Organization [facility] Address [address] [place] [address] Care Team Providers Care Flex O Writer Operator Name Role Phone Timo Walters MD Primary Care Provider [phone] Social History Tobacco Use Types Packs/Day Years Used Date Smoking Tobacco: Never Assessed Sex and Gender Information Value Date Recorded Sex Assigned at Not on file Legal Sex Male 9:06 AM EDT Gender Identity Not on file Sexual Orientation Not on file Plan of Treatment Health Maintenance Due Date Last Done Comments Cologuard 1956 Colonoscopy 1956 Colorectal Cancer Screening 1956 FIT 1956 Lipid Monitoring 1973 Tetanus Vaccination (Every 10 Years) 1974 Hepatitis C Virus (HCV) Screening 1977 Pneumococcal Vaccine: 50+ Years (1 of 1 - PCV) 007 Zoster-RZV(Shingrix) (1 of 2) 2006 Fall Risk Assessment 2021 Advance Care Planning 11/30/2024 Depression Screening 11/30/2024 COVID-19 Vaccine ( - 2023- season) 2025 Influenza Vaccination (#1) 2025 RSV Vaccines (1 - 1-dose 75+ series) 2031 Insurance ([address] [id number] MEDICARE [employer] MEDICAID [place] Care Teams Flex O Writer Operator Relationship Specialty Start Date End Date Timo Walters MD [address] [place] [id number] PCP - General Family Medicine 04/29/22
== END 2025-08-25 23:59 ==
LOC: LAB.DROPOF 08-28 10:39
PROVIDERS: PCP Family Medicine; Visit Provider Family Medicine
DX: Z12.5 Encounter for screening for malignant neoplasm of prostate (principal); Z11.59 Encounter for screening for other viral diseases; I10 Essential (primary) hypertension; Z83.3 Family history of diabetes mellitus; Z79.899 Other long term (current) drug therapy
CPT/HCPCS: 80053; 83036; 86803; 87389; 87522; G0103